=== PATIENT | female | born 1985 | race Caucasian/White ===

== ENCOUNTER → 2017-09-23 | Day surgery (SDC) | payer OTHER ==
[2008-03-08 13:06] VITALS: BP 100/65
[~2017-09-23] MED LIST: IBUPROFEN800 M1 PO
[2017-09-23 09:30] LABS: ABSOLUTE BASOPHIL COUNT 0 /CUMM (0.0-0.2); ABSOLUTE EOSINOPHIL COUNT 0.1 /CUMM (0.0-0.7); ABSOLUTE GRANULOCYTE CT 4.8 /CUMM (1.4-6.5); ABSOLUTE LYMPH COUNT 1.7 /CUMM (1.2-3.4); ABSOLUTE MONOCYTE COUNT 0.6 /CUMM (0.10-0.60); BASOPHIL % 0.3 % (0.0-2.0); GRANULOCYTE % 66.4 % (42.2-75.2); HEMATOCRIT 39.2 % (37-47); MEAN CORPUSCULAR HGB 26.3 PG (27.0-31.0); MEAN CORPUSCULAR HGB CONC 32.3 G/DL (33.0-37.0); MEAN CORPUSCULAR VOLUME 81.4 FL (81.0-99.0); MEAN PLATELET VOLUME 10.2 FL (7.4-10.4); PLATELET COUNT 231 /CUMM (130-400); RBC DISTRIBUTION WIDTH 15.4 % (11.5-14.5); RED BLOOD CELL CT 4.81 /CUMM (4.20-5.40); WHITE BLOOD CELL COUNT 7.2 /CUMM (4.8-10.8)
--- NOTE | 2017-09-23 14:07 | Operative Report ---
Operative/Inv Procedure Report Surgery Date: 09/23/17 Name of Procedure: Suction D&C for termination of Pre-Operative Diagnosis: Undesired at 6 weeks and 6 days Post-Operative Diagnosis: same Estimated Blood Loss: less than 50ml (dictation) Surgeon/Tourist Cabin Keeper: Diane Guzmán MD Anesthesia: moderate sedation, block Specimens: Moderate amount of POC's to pathology Complications: None Condition: Stable Operative/Procedure Note Note: The patient was taken to the operating room and placed in the dorsal supine position. Sedation was achieved without difficulty. The patient was then placed in dorsal lithotomy position. She was prepped and draped in the usual sterile fashion. A sterile speculum was then placed in the patient's vagina and a single-tooth tenaculum was applied to the anterior lip of the cervix. A paracervical block was then performed with 10cc of 1% lidocaine. The cervix was then serially dilated to accommodate a 7 mm suction curette. The suction curette was inserted and attached to the suction device. 3 passes with the suction curet was then performed to clear the uterus of products of conception. Gentle curettage was then performed until a gritty texture was noted in all 4 quadrants. The suction curette was then reinserted into the uterus to clear the uterus of remaining clots and debris. Excellent hemostasis was noted. All instruments were then removed from the patient's vagina. All counts were reported to be correct 2. The patient was taken to the recovery room in stable condition. Findings: Vaginal exam revealed an approximately 7 week anteverted uterus. Discharge Disposition: Same Day Admissions
== END ==
LOC: STS 01:57
PROVIDERS: Obstetrics & Gynecology
DX: Z33.2 Encounter for elective termination of pregnancy (principal); Z87.891 Personal history of nicotine dependence
CPT/HCPCS: 36415; 88305; J2250